=== PATIENT | male | born 1980 | race Caucasian/White ===

== ENCOUNTER 2024-02-28 15:45 | Outpatient (RCR) | payer OTHER, SELFPAY ==
--- NOTE | 2023-12-01 12:47 | OT.OPOE ---
OT Outpatient Ortho Eval OT Outpatient Ortho Eval* Start: 12/01/23 10:29 Freq: Status: Active Protocol: Document 12/01/23 10:30 SJKanika (Rec: 12/01/23 12:44 SJKanika [id number]) E-signed By Roxi Pope, OTR/L, CLT OT OP Ortho Eval Details Complexity Complexity Low Insurance Information Insurance Information Workman's Comp Insurance Information Comments [employer] (wc) Outpatient History/Precautions Current Condition/Medical Diagnosis Referring Provider Dr. 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 This is a work-related injury that he sustained to his right hand 09/05/2023 (12+ weeks ago). Injury occurred when he was lowering a burial vault into the ground, and the brake failed causing the crank handle to smack into his right hand. He was subsequently diagnosed with an avulsion fracture off the ulnar base of his index finger proximal phalanx. This was treated initially with an Alumafoam splint, which was later converted to sania taping. Patient reports occasional discomfort and clicking when he flexes his finger, therapist was able to hear this clicking/snapping on EVAL. Patient's work routine is: Leaves for work at 5:30 am and then done anywhere between 4- 7 pm (depending on location) Tue-Tuesday and works most Saturdays. Pain Assessment Pain Present Pain Present Pain Reported Location Right Finger Intensity 3 Hand Pinch/Service Line Coordinator Strength Hand Right Service Line Coordinator Strength Position 1 (lbs) 100 Service Line Coordinator Strength Position 2 (lbs) 100 Lateral Pinch Strength (lbs) 17 Three Point Pinch (lbs) 17 Tip Pinch Strength (lbs) 12 Left Service Line Coordinator Strength Position 1 (lbs) 112 Service Line Coordinator Strength Position 2 (lbs) 112 Lateral Pinch Strength (lbs) 23 Three Point Pinch (lbs) 18 Tip Pinch Strength (lbs) 21 OT Objective Data Observations/Posture/Limb Appearance Objective Observations R hand: No obvious deformity. He was able to flex and extend his index and middle fingers, but flexion of the index finger was limited. R hand Index finger: DIP 0/50; PIP 0/70 and MP 0/70 Sensation Sensation Assessment Summary Comments Sensation was intact to light touch to all digits. Fingers are all warm and well perfused with good capillary refill. Additional Information Objective Additional Information X-Ray report: IMAGING: AP, lateral, oblique x-rays of the right hand performed in clinic today were reviewed. These demonstrated a minimally displaced, intra-articular fracture at the ulnar base of the index finger proximal phalanx. Fracture was displaced <1 mm along the ulnar cortex with no displacement of the joint surface. There was also a benign-appearing bony outgrowth off the ulnar margin of the distal right 5th metacarpal which may be related to previous trauma. Compared to x-rays obtained , there has been some interval healing with no change in alignment. 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 Injury occurred when he was lowering a burial vault into the ground, and the brake failed causing the crank handle to smack into his right hand. He was subsequent diagnosed with an avulsion fracture off the ulnar base of his index finger proximal phalanx. This was treated initially with an Alumafoam splint and then he was converted to sania taping. PLAN: Patient to be seen for OT 1-2x/week for 6-8 weeks ( until goals are met or progress ceases). Modalities as needed, AROM to digits and wrist, development of an HEP with advancement as patient progresses. Occupational Therapy Treatment Plan - OP Potential Rehabilitation Potential Good Barriers Barriers to goal attainment None Set Goals Goals Set with Patient Yes Goals Goals 1. Pt will demonstrate pain- free machine ii engraver and pinch strength comparable to the uninvolved side in order to improve functional grasp, hold, reach, and lifting ability needed to complete self-care, leisure tasks, and work activities. 2. Through activity participation in skilled therapy sessions, and consistency in performing a customized HEP, patient will improve capacity of tendons and muscles to manage load in order to have less pain with ADLs, work, leisure activities and IADLs. 3. Patient will improve R hand AROM (EVAL 12/01/23: R hand Index finger: DIP 0/50; PIP 0/ 70 and MP 0/70) in order to use his work tools without any limitations or pain. 4. Patient will have a decreased score on The DASH ( raw score on EVAL 56 points) in order to show significant change in UE function to better her ADL, IADL, work and leisure performance. Target Date 6-8 weeks Treatment Plan Treatment Plan Evaluation,Edema Control,Joint Mobilization,Manual Therapy, Ultrasound,Therapeutic Exercise,Self Care/Home Management,Education Expected Frequency 1-2x Week Expected Duration 6-8 Weeks Home Program Home Program Home Program Initiated Home Program Specifics AROM of all digits on R hand ( with joint blocking at MP, IP) Red-medium soft Thera putty for machine ii engraver/hand squeezes on the R hand (Therapist provided patient with a R hand Medium Size compression glove at time of Eval to be worn during the day underneath his work glove). Recertification Information Recertification Information Initial Certification Date 12/01/23 Recertification Due Date 02/29/24 Click To Default 'Per treatment plan' Per treatment plan Continued Plan of Care and Interventions Per treatment plan Provider Signature Shows Agreement With POC & Medical Necessity Physician Comment/Change Comment or Changes Physician NPI Number #
== END 2024-02-28 16:07 | disposition home or self-care (01) ==
PROVIDERS: Visit Provider Orthopaedic Surgery
DX: S62.640A Nondisplaced fracture of proximal phalanx of right index finger, initial encounter for closed fracture (principal); M25.641 Stiffness of right hand, not elsewhere classified; M79.644 Pain in right finger(s); Z51.89 Encounter for other specified aftercare
CPT/HCPCS: 97110; 97140; 97165; X5282